=== PATIENT | male | born 1970 | race Caucasian/White ===

== ENCOUNTER 2018-02-17 09:52 | Emergency (ER) | payer OTHER ==
[~2018-02-17] VITALS: Ht 180.3 cm; Wt 79.5 kg
[2018-02-17] MEDS: LIDOCAINE HCL 1%/EPI 1:200,000/PF 30 ML VIAL INJ ONE (11:40)
[2018-02-17 11:52] VITALS: BP 125/58
== END 2018-02-17 11:54 | disposition home or self-care (01) ==
LOC: EMS 10:08
DX: S41.012A Laceration without foreign body of left shoulder, initial encounter (principal); F17.210 Nicotine dependence, cigarettes, uncomplicated; W26.8XXA Contact with other sharp object(s), not elsewhere classified, initial encounter; Y93.89 Activity, other specified; Y92.488 Other paved roadways as the place of occurrence of the external cause; Y99.8 Other external cause status
CPT/HCPCS: 12002; 99283; J3490

== ENCOUNTER 2018-03-20 14:34 | Emergency (ER) | payer OTHER ==
[~2018-03-20] VITALS: Ht 177.8 cm; Wt 86.0 kg
[2018-03-20 14:40] VITALS: BP 161/83
== END 2018-03-20 15:44 | disposition left against medical advice (07) ==
LOC: EMS 14:34
DX: R21 Rash and other nonspecific skin eruption (principal); Z53.21 Procedure and treatment not carried out due to patient leaving prior to being seen by health care provider

== ENCOUNTER 2020-07-16 00:57 | Inpatient (IN) | payer MEDICAID, OTHER ==
[~2020-07-16] VITALS: Ht 172.7 cm; Wt 68.2 kg
[2020-07-16] MEDS ORDERED: MIDAZOLAM HCL 5 MG/ML VIAL IM ONE (01:15)
[2020-07-16 02:04] LABS: BASOPHILS % (AUTO) 0.2 % (0.0-2.0); EOSINOPHILS % (AUTO) 0.2 % (1.0-6.0); HEMATOCRIT 39.8 % (41-53); HEMOGLOBIN 13.1 g/dL (13.5-17.5); LYMPHOCYTES # (AUTO) 1.1 K/uL (1.0-4.8); LYMPHOCYTES % (AUTO) 6.3 % (22.0-44.0); MEAN CORPUSCULAR HEMOGLOBIN 28.6 pg (26.0-34.0); MEAN CORPUSCULAR HGB CONC 32.8 G/dL (31.0-37.0); MEAN CORPUSCULAR VOLUME 87 fL (80-100); NEUTROPHILS # (AUTO) 14.5 K/uL (1.8-7.7); PLATELET COUNT (AUTO) 235 K/uL (150-450); RED BLOOD CELL COUNT(AUTO) 4.58 MIL/uL (4.50-5.90)
[2020-07-16 02:08] LABS: NEUTROPHILS % (AUTO) 87.3 % (40.0-70.0)
[2020-07-16 02:14] LABS: ANION GAP 10 mmol/L (8-16); CALCIUM, TOTAL 8.7 mg/dL (8.8-10.5); CARBON DIOXIDE 26 mmol/L (22-29); CHLORIDE 100 mmol/L (98-107); CREATININE 1.35 mg/dL (0.60-1.30); GLOMERULAR FILTR. RATE CALC 56 mL/min (>60); GLUCOSE,RANDOM 106 mg/dL (70-110); POTASSIUM 3.9 mmol/L (3.5-5.1); SODIUM SERUM 136 mmol/L (136-145); UREA NITROGEN, BLOOD 22 mg/dL (7-18)
[2020-07-16 02:15] LABS: COVID AG,FIA SOURCE NASOPHARYNGEAL
[2020-07-16 02:20] LABS: ALANINE AMINOTRANSFERASE 32 U/L (12-78); ALBUMIN 3.8 g/dL (3.4-5.0); ALKALINE PHOSPHATASE 72 U/L (46-116); ASPARTATE AMINOTRANSFERASE 34 U/L (15-37); BILIRUBIN,TOTAL 0.4 mg/dL (0.1-1.0); TOTAL PROTEIN, SERUM 7.4 g/dL (6.4-8.2)
[2020-07-16] MEDS ORDERED: ZOLPIDEM TARTRATE 10 MG TABLET PO PRN (06:45)
[2020-07-16] MEDS ORDERED: LORazepam 2 MG TABLET PO PRN (06:45)
[2020-07-16] MEDS ORDERED: HALOPERIDOL 5 MG TABLET PO PRN (06:45)
[2020-07-16] MEDS ORDERED: LORazepam 2 MG/ML VIAL IM ONE (07:45)
[2020-07-16] MEDS ORDERED: HALOPERIDOL LACTATE 5 MG/ML VIAL IM ONE (07:45)
[2020-07-16] MEDS ORDERED: IBUPROFEN 400 MG TABLET PO PRN (09:00)
[2020-07-16] MEDS ORDERED: MAG HYDROX/AL HYDROX/SIMETH ES 30 ML SUSPENSION UDCUP PO PRN (09:00)
[2020-07-16] MEDS ORDERED: ONDANSETRON HCL 4 MG TABLET PO PRN (09:00)
[2020-07-16] MEDS ORDERED: ACETAMINOPHEN 325 MG TABLET PO PRN (09:00)
[2020-07-16] MEDS ORDERED: LOPERAMIDE HCL 2 MG CAPSULE PO PRN (09:00)
[2020-07-16] MEDS ORDERED: DOCUSATE SODIUM 100 MG CAPSULE PO PRN (09:00)
[2020-07-16] MEDS ORDERED: CloNIDine HCL 0.1 MG TABLET PO PRN (09:00)
[2020-07-16] MEDS ORDERED: NICOTINE 14 MG/24 HOUR PATCH TD PRN (09:00)
[2020-07-16] MEDS ORDERED: GuaiFENesin/D-METHORPHAN [SUGAR-FREE] 200-20MG/10 ML SYRUP UDCUP PO PRN (09:00)
[2020-07-16] MEDS ORDERED: ALBUTEROL SULFATE HFA 90 MCG/PUFF 8 GM INHALER IH PRN (09:00)
[2020-07-16] MEDS ORDERED: PETROLATUM,WHITE 28 GM JELLY TP PRN (09:00)
[2020-07-16] MEDS ORDERED: MAGNESIUM HYDROXIDE SUSPENSION 30 ML UDCUP PO PRN (09:00)
[2020-07-16 09:29] VITALS: BP 130/96
[2020-07-16] MEDS ORDERED: INFLUENZA VIRUS VACCINE QVS 2020-21 (6MO+)/PF 60 MCG/0.5 ML SYRINGE IM ONE (09:45)
[2020-07-16] MEDS: BuPROPion HCL XL 150 MG ER TABLET PO SCH (14:00)
[2020-07-16 16:27] VITALS: BP 122/71
[2020-07-16] MEDS: FERROUS SULFATE 325 MG EC TABLET PO SCH (17:00)
[2020-07-17 04:27] VITALS: BP 121/68
[2020-07-17] MEDS: FERROUS SULFATE 325 MG EC TABLET PO SCH ×2 (06:05→17:06)
[2020-07-17] MEDS: BuPROPion HCL XL 150 MG ER TABLET PO SCH (09:22)
[2020-07-17 11:48] VITALS: BP 101/60
[2020-07-17 16:11] VITALS: BP 128/60
[2020-07-18 01:31] VITALS: BP 131/80
[2020-07-18] MEDS: FERROUS SULFATE 325 MG EC TABLET PO SCH (06:24)
[2020-07-18 08:09] VITALS: BP 112/67
[2020-07-18] MEDS: BuPROPion HCL XL 150 MG ER TABLET PO SCH (09:13)
[2020-07-18] MEDS ORDERED: BUPR75 PO (10:49)
== END 2020-07-18 13:47 | disposition home or self-care (01) | DRG 750 ==
LOC: EMS 00:59 → B3A 06:43
PROVIDERS: ADMIT Psychiatry & Neurology Psychiatry; ATTEND Psychiatry & Neurology Psychiatry
DX: F20.9 Schizophrenia, unspecified (principal); N17.9 Acute kidney failure, unspecified; R45.851 Suicidal ideations; F17.210 Nicotine dependence, cigarettes, uncomplicated; F90.9 Attention-deficit hyperactivity disorder, unspecified type; D72.829 Elevated white blood cell count, unspecified; Z20.822 Contact with and (suspected) exposure to COVID-19; F99 Mental disorder, not otherwise specified; D64.9 Anemia, unspecified; Z59.0 Homelessness; Z78.1 Physical restraint status
CPT/HCPCS: 87426; 99291; G0480; J2250

== ENCOUNTER 2020-10-11 16:32 | Emergency (ER) | payer MEDICAID, OTHER ==
[~2020-10-11] VITALS: Ht 175.3 cm; Wt 72.7 kg
[~2020-10-11 16:32] MED LIST: BUPR75 PO
[2020-10-11 16:45] VITALS: BP 132/86
== END 2020-10-11 19:34 | disposition home or self-care (01) ==
LOC: EMS 16:34
DX: F20.9 Schizophrenia, unspecified (principal)
CPT/HCPCS: 99284; Z7502

== ENCOUNTER 2021-02-07 13:59 | Emergency (ER) | payer OTHER ==
[~2021-02-07] VITALS: Ht 177.8 cm; Wt 84.1 kg
[2021-02-07 14:00] VITALS: BP 114/61
== END 2021-02-07 17:15 | disposition home or self-care (01) ==
LOC: EMS 14:15
DX: F98.9 Unspecified behavioral and emotional disorders with onset usually occurring in childhood and adolescence (principal); F20.9 Schizophrenia, unspecified; F15.10 Other stimulant abuse, uncomplicated
CPT/HCPCS: 99281; Z7502

== ENCOUNTER 2024-12-30 04:29 | Emergency (ER) | payer OTHER ==
[~2024-12-30 04:29] MED LIST changes: +BUPR-344 PO; -BUPR75 PO
== END 2024-12-30 04:43 | disposition left against medical advice (07) ==
LOC: EMS 04:37
DX: R41.82 Altered mental status, unspecified (principal); Z53.21 Procedure and treatment not carried out due to patient leaving prior to being seen by health care provider